=== PATIENT | female | born 1995 | race Two or more races ===

== ENCOUNTER 2017-12-18 11:04 | Emergency (ER) | payer SELFPAY, MEDICAID ==
[2017-12-18 11:18] LABS: URINE HCG POC HCG POSITIVE (Negative)
[2017-12-18 11:38] LABS: BILIRUBIN,URINE NEGATIVE (NEG); CLARITY,URINE CLOUDY; COLOR,URINE YELLOW; GLUCOSE,URINE NEGATIVE (NEG); NITRITE,URINE NEGATIVE (NEG); PH,URINE 7.5; PROTEIN,URINE NEGATIVE (NEG-TRACE)
[2017-12-18 11:51] LABS: AMORPHOUS SEDIMENT,UR PRESENT /HPF; BACTERIA,URINE FEW /HPF (0-FEW); RBC,URINE 0 /HPF (0-2); SQUAMOUS EPITHELIAL CELL,UR MOD /LPF; WBC,URINE OCC /HPF (0-4)
[2017-12-18 11:58] LABS: ADD MAN DIFF? NO
[2017-12-18 12:03] LABS: BASO % 0 % (0-3); EOS # 0.1 x10^3/uL (0.0-0.7); EOS % 2 % (0-3); HEMOGLOBIN 13.9 g/dL (12.0-15.5); LYMPH # 3.3 x10^3/uL (1.0-4.8); LYMPH % 38 % (24-48); MEAN CORPUSCULAR HEMOGLOBIN 30 pg (25-35); MEAN CORPUSCULAR HGB CONC 34 g/dL (31-37); MEAN CORPUSCULAR VOLUME 87 fL (79-100); MONO # 0.4 x10^3/uL (0.0-1.1); MONO % 5 % (0-9); NEUT # 4.9 x10^3uL (1.8-7.7); NEUT % 56 % (31-73); PLATELET COUNT 291 x10^3/uL (140-400); RED BLOOD COUNT 4.69 x10^6/uL (3.50-5.40); WHITE BLOOD COUNT 8.7 x10^3/uL (4.0-11.0)
[2017-12-18 12:10] LABS: ANION GAP 9 (6-14); BLOOD UREA NITROGEN 7 mg/dL (7-20); CARBON DIOXIDE 27 mmol/L (21-32); CHLORIDE 102 mmol/L (98-107); CREATININE 0.6 mg/dL (0.6-1.0); GFR 122.8; GLUCOSE 91 mg/dL (70-99); POTASSIUM 3.9 mmol/L (3.5-5.1); SODIUM 138 mmol/L (136-145)
[2017-12-18 12:13] LABS: INR 1.1 (0.8-1.1); PARTIAL THROMBOPLASTIN TIME 37 SEC (24-38); PROTHROMBIN TIME PATIENT 13.8 SEC (11.7-14.0)
[2017-12-18 12:15] LABS: ALBUMIN 3.8 g/dL (3.4-5.0); ALK PHOS 67 U/L (46-116); ALT (SGPT) 22 U/L (14-59); AST (SGOT) 17 U/L (15-37); DIRECT BILIRUBIN 0.1 mg/dL (0.0-0.2); TOTAL BILIRUBIN 0.8 mg/dL (0.2-1.0); TOTAL PROTEIN 7.7 g/dL (6.4-8.2)
[2017-12-18] MEDS: FLUCONAZOLE 100 MG TABLET. PO (15:09)
[2017-12-19 14:32] LABS: CHLAMYDIA PROBE Negative (Negative); GC PROBE Negative (Negative)
== END 2017-12-18 15:18 | disposition home or self-care (01) ==
LOC: ER 11:04
DX: O20.0 Threatened abortion (principal); Z3A.14 14 weeks gestation of pregnancy
CPT/HCPCS: 36415; 76801; 76817; 80048; 80076; 81001; 81025; 84702; 85025; 85610; 85730; 87086; 87491; 87591; 88305; 99285-25; Q0111

== ENCOUNTER → 2020-09-17 | Outpatient (CLI) | payer SELFPAY ==
[2017-12-18 15:16] VITALS: BP 114/67
[~2020-09-17] MED LIST: DOCU-109 PO; FERR325T14 PO; IBUP-1060 PO; NITR100C62 PO; OXYC1TAB15 PO
== END ==
LOC: LAB 14:35
PROVIDERS: ATTEND Obstetrics & Gynecology
DX: U07.1 COVID-19 (principal); Z01.812 Encounter for preprocedural laboratory examination
CPT/HCPCS: U0003

== ENCOUNTER 2020-09-21 06:12 | Inpatient (IN) | payer MEDICAID, OTHER ==
[2020-09-21] VITALS (7 sets, daily range): BP systolic 96–115; BP diastolic 53–79
[~2020-09-21] VITALS: Ht 167.6 cm; Wt 105.7 kg
[~2020-09-21 06:12] MED LIST changes: -DOCU-109 PO; -FERR325T14 PO; -IBUP-1060 PO; -OXYC1TAB15 PO
[2020-09-21] MEDS: IV NORMAL SALINE 1000ML BAG 1,000 ML IV SCH ×3 (06:45→22:45)
[2020-09-21] MEDS ORDERED: CITRIC ACID/SODIUM CITRATE 30 ML SOLUTION. PO ONE (06:45)
[2020-09-21] MEDS: IV RINGERS,LACTATED 1000ML 1,000 ML IV SCH ×4 (06:58→18:29)
[2020-09-21 07:15] LABS: HEMATOCRIT 31.7 % (36.0-47.0); RED BLOOD COUNT 3.57 x10^6/uL (3.50-5.40); RED CELL DISTRIBUTION WIDTH 13.6 % (11.5-14.5); WHITE BLOOD COUNT 11.6 x10^3/uL (4.0-11.0)
[2020-09-21 07:28] LABS: BACTERIA,URINE MODERATE /HPF (0-FEW); BILIRUBIN,URINE SMALL (NEG); CLARITY,URINE CLOUDY; COLOR,URINE AMBER; NITRITE,URINE NEGATIVE (NEG); PH,URINE 6.5 (<5.0-8.0); PROTEIN,URINE 30 mg/dL (NEG-TRACE)
[2020-09-21 07:29] LABS: RBC,URINE OCC /HPF (0-2)
[2020-09-21] MEDS ORDERED: ONDANSETRON PF 4 MG/2 ML VIAL. ONE (07:33)
[2020-09-21] MEDS ORDERED: PHENYLEPHRINE in 0.9% NACL PF 1 MG/10 ML SYRINGE. IV ONE ×2 (07:34→08:56)
[2020-09-21] MEDS ORDERED: OXYTOCIN 10 UNIT/ML VIAL. ONE ×3 (07:34)
[2020-09-21] MEDS ORDERED: fentaNYL PF VIAL 100 MCG/2 ML VIAL ONE (07:36)
[2020-09-21] MEDS ORDERED: MORPHINE PF 10 MG/10 ML AMPUL. ONE (07:36)
--- NOTE | 2020-09-21 07:38 | PDOC1 ---
SIDEROGRAPHER H&P Date of Admission: Date of Admission: Sep 21, 2020 at 06:12 History of Present Illness: EDC: 09/26/20 LMP: 09/27/19 25y @ 39.2 by 7wk u/s presents for scheduled C/S. The pt has had 3 C/S, the first in [place], followed by [place] with the final one at [facility]. PMH: Denies PSH: C/S x 3 Meds: PNV All: NKDA OBHx: 37wk C/S x 3 SH: no tob, no EtOH FH: noncontributory Medications: Meds: Current Medications Medications (Trade) Dose Ordered Sig/Nette Route PRN Reason Start Time Stop Time Status Last Admin Dose Admin Ringer's Solution 1,000 ml @ 125 mls/hr Q8H IV 09/21/20 06:45 09/21/20 06:58 Allergies: Coded Allergies: No Known Drug Allergies (Unverified , 12/25/14) Physical Exam: PE: GENERAL: No apparent distress. Alert and oriented. HEENT: Head normocephalic, atraumatic. NECK: Supple LUNGS: Clear to auscultation. HEART: RRR, S1, S2 present, pulses intact ABDOMEN: Soft, positive bowel sounds. EXTREMITIES: No cyanosis or edema. NEUROLOGIC: Normal speech, normal tone PSYCHIATRIC: Normal affect, normal mood. SKIN: No ulceration. FHT: 130s +acels/no decels/mLTV Sentinel: 10-15 min Labs: Laboratory Tests Test 09/21/20 06:40 09/21/20 06:45 White Blood Count 11.6 x10^3/uL (4.0-11.0) H Red Blood Count 3.57 x10^6/uL (3.50-5.40) Hemoglobin 11.0 g/dL (12.0-15.5) L Hematocrit 31.7 % (36.0-47.0) L Mean Corpuscular Volume 89 fL (79-100) Mean Corpuscular Hemoglobin 31 pg (25-35) Mean Corpuscular Hemoglobin Concent 35 g/dL (31-37) Red Cell Distribution Width 13.6 % (11.5-14.5) Platelet Count 217 x10^3/uL (140-400) Urine Collection Type Unknown Urine Color Shila Urine Clarity Cloudy Urine pH 6.5 (<5.0-8.0) Urine Specific [place] >=1.030 (1.000-1.030) Urine Protein 30 mg/dL (NEG-TRACE) Urine Glucose (UA) Negative mg/dL (NEG) Urine Ketones (Stick) Trace mg/dL (NEG) Urine Blood Negative (NEG) Urine Nitrite Negative (NEG) Urine Bilirubin Small (NEG) Urine Urobilinogen Dipstick 1.0 mg/dL (0.2 mg/dL) Urine Leukocyte Esterase Large (NEG) Urine RBC Occ /HPF (0-2) Urine WBC 11-20 /HPF (0-4) Urine Squamous Epithelial Cells Many /LPF Urine Bacteria Moderate /HPF (0-FEW) Urine Mucus Marked /LPF Laboratory Tests 09/21/20 06:40 Laboratory Tests 09/21/20 06:40 Assessment & Plan: A/P 25y @ 39.2 by 7wk u/s 1.) Prev C/S x 3 scheduled for RLTCS/BTL 2.) DPS consent signed 08/12/20 3.) Covid screen positive asx 4.) Anemia Hgb 11.5 5.) TDAP 07/01/20 6.) Flu given 07/01/20 7.) Fetus cat I FHT 8.) GBS neg PILI TRAORE MD Sep 21, 2020 07:38
--- NOTE | 2020-09-21 10:12 | PDOC4 ---
OPERATIVE NOTE: PreOp Dx: 1.) IUP @ 39.2 by 7wk u/s, 2.) Prev C/S x 3, 3.) DPS, 4.) Covid screen positive asx, 5.) Anemia, 6.) GBS neg PostOp Dx: same Procedure: RLTCS/BTL Surgeon: Mimi Traore Anesthesia: Spinal EBL: 700 cc Fluids: 1700 cc UOP: 100 cc Complications: None Findings: viable male infant delivered at 0832. Wt 8 lb 5 oz. APGARS 8/9. Nml appearing uterus, tubes and ovaries Path: Cord blood, bilateral tubal segments PILI TRAORE MD Sep 21, 2020 10:12
[2020-09-21] MEDS ORDERED: OXYTOCIN 30 UNIT/500 ML PREMIX 500 ML IV PRN (10:15)
[2020-09-21] MEDS ORDERED: TDaP (Adacel) per PROTOCOL. MC PRN (10:15)
[2020-09-21] MEDS ORDERED: 0.9 % SODIUM CHLORIDE 10 ML DISP.SYRIN. IV PRN (10:15)
[2020-09-21] MEDS ORDERED: MMR per PROTOCOL. MC PRN (10:15)
[2020-09-21] MEDS ORDERED: BENZOCAINE 20% TOPICAL AEROSOL SPRAY 57GM CAN. TP PRN (10:15)
[2020-09-21] MEDS ORDERED: diphenhydrAMINE ORAL ELIXIR 12.5 MG/5 ML ML PO PRN (10:15)
[2020-09-21] MEDS ORDERED: ACETAMINOPHEN 325 MG TABLET. PO PRN (10:15)
--- NOTE | 2020-09-21 10:39 | OP ---
DATE OF SURGERY: 09/21/2020 PREOPERATIVE DIAGNOSES: 1. Intrauterine at 39 weeks and 2 days by 7-week ultrasound. 2. Previous section x 3. 3. Desires permanent sterilization. 4. COVID screen positive. 5. Anemia. 6. Group B Streptococcus negative. POSTOPERATIVE DIAGNOSES: 1. Intrauterine at 39 weeks and 2 days by 7-week ultrasound. 2. Previous section x 3. 3. Desires permanent sterilization. 4. COVID screen positive. 5. Anemia. 6. Group B Streptococcus negative. PROCEDURE: Repeat lower transverse with bilateral tubal ligation. SURGEON: Sumanth Traore MD. ANESTHESIA: Spinal. ESTIMATED BLOOD LOSS: 700 mL. FLUIDS: 1700 mL. URINE OUTPUT: 100 mL. COMPLICATIONS: None. FINDINGS: Viable female infant delivered at 08:32 weighing 8 pounds 5 ounces with Apgars of 8 and 9. Normal appearing uterus, tubes and ovaries. PATHOLOGY: Cord blood and bilateral tubal segments. DESCRIPTION OF PROCEDURE: The patient was taken to the operating room where spinal anesthesia was placed without difficulty. The patient was prepped and draped in a normal sterile fashion. A Pfannenstiel skin incision was made through her previous incision and carried down to underlying layer of fascia. The fascia was then nicked in the midline. The fascial incision was then extended laterally with Souza scissors. Superior aspect of fascial incision was then grasped with Jonathan clamps, elevated and the underlying rectus muscle was dissected off with scalpel. Attention was then turned to the inferior aspect of the fascial incision, which was grasped with Jonathan clamps, elevated and underlying rectus muscle was dissected off with Souza scissors. At that point, the midline of the rectus muscle was identified and . The peritoneum was then grasped with 2 hemostats, tented up and Metzenbaum scissors were used to enter the peritoneal cavity sharply. Digital examination of the peritoneal cavity revealed minimal adhesions. At that point, the peritoneal incision was then extended superiorly and inferiorly with good visualization of the bladder with traction and countertraction. At that point, Yevgeniy ring was then placed into the abdomen to better visualize the lower uterine segment. Metzenbaum scissors were used to create a bladder flap. It appeared at that point that the bladder was somewhat inflated. It was also noted at that point that since the Vazquez had been placed, no urine had returned. It was felt that the catheter may not be in the bladder, but since the bladder was not in the way of the procedure, the procedure was continued. At that point, the lower uterine segment was incised in transverse fashion with the scalpel. The head was unable to be flexed adequately for delivery of the . With abdominal pressure, the forehead seemed to be trying to exit the hysterotomy before the crown and since this being the case, a vacuum was placed to better flex the head. Once the vacuum was placed, the 's head was able to be delivered. The baby was noted to be in OP position at that point. The rest of the was delivered atraumatically. The cord was double clamped and cut. Infant was handed over to the awaiting pharmacy informatics manager. Placenta was then removed manually. The uterus was cleared of all clots and debris. Uterine incision was then repaired with #1 chromic in a running locked fashion. A second layer of the same suture was used to imbricate. Good hemostasis was noted. At that point, the uterus was exteriorized to allow for the tubal to be performed. The left tube was then identified and followed out to the fimbria. The tube was then grasped with a Allison. An opening was created in the avascular portion of the mesosalpinx. Two free ties of 0 gut were used to ligate the tube. This 2 cm segment of the tube was then excised and sent to pathology. The edges were made hemostatic with the Bovie. Attention was then turned to the right tube, which was followed out to the fimbria. The Laurel was then placed on the tube with the Bovie. An opening was created in avascular space of the mesosalpinx below the tube. At that point, 2 free ties of plain gut were used to ligate the tube. This 2 cm segment of the tube was then excised and sent to pathology. The tube was again made hemostatic with the Bovie. At that point, the uterus was returned to the abdomen. The gutters were copiously irrigated and cleared of all clots and debris. Reexamination of the tubal sites revealed good hemostasis. The Yevgeniy retractor was then removed. The peritoneum was then closed with 2-0 Vicryl in a running fashion. The muscle was reapproximated with 2-0 Vicryl in a running fashion. The fascia was then closed with 0 Vicryl in a running fashion. The skin was closed with 3-0 Monocryl in subcuticular manner. The patient tolerated the procedure well. The Vazquez was found to be in her vagina, so a new Vazquez was place after the case. Clear urine returned. Sponges, laps, and needles were correct x 3. Two grams of Ancef were given prior to the procedure. The patient tolerated the procedure well and was taken to recovery room in stable condition. SUMNATH TRAORE MD DR: GALLITO/naty JOB#: [id number] / [id number] TAMI
[2020-09-21] MEDS: KETOROLAC 30 MG/ML VIAL. IVP PRN ×2 (10:43→17:20)
[2020-09-21] MEDS: FERROUS SULFATE 325 MG TABLET. PO SCH (17:00)
[2020-09-22 01:00] VITALS: BP 107/59
[2020-09-22 06:15] VITALS: BP 79/53
[2020-09-22] MEDS: IV NORMAL SALINE 1000ML BAG 1,000 ML IV SCH ×2 (06:45→14:45)
[2020-09-22] MEDS: oxyCODONE/APAP 5/325 1 TAB TABLET PO PRN ×4 (06:53→20:44)
[2020-09-22 06:54] VITALS: BP 103/56
[2020-09-22 06:58] LABS: HEMATOCRIT 27.3 % (36.0-47.0); HEMOGLOBIN 9.6 g/dL (12.0-15.5); RED BLOOD COUNT 3.07 x10^6/uL (3.50-5.40); RED CELL DISTRIBUTION WIDTH 13.5 % (11.5-14.5); WHITE BLOOD COUNT 10.7 x10^3/uL (4.0-11.0)
[2020-09-22] MEDS ORDERED: MULTIVITAMIN with MINERAL TABLET. PO SCH (09:00)
[2020-09-22 10:30] VITALS: BP 102/56
[2020-09-22] MEDS: FERROUS SULFATE 325 MG TABLET. PO SCH ×2 (11:07→17:20)
[2020-09-22] MEDS: PRENATAL MULTIVITAMIN TABLET. PO SCH (11:08)
[2020-09-22] MEDS: IBUPROFEN 400 MG TABLET. PO PRN ×2 (11:08→20:45)
--- NOTE | 2020-09-22 14:01 | PDOC ---
FUNERAL PROFESSIONAL PROGRESS NOTE Date of Service: DATE: 09/22/20 TIME: 14:01 Subjective: Pt with good pain control. Catina PO. Voiding. Minimal lochia. Objective: Vital Signs: Vital Signs Date Time Temp Pulse Resp B/P (MAP) Pulse Ox O2 Delivery O2 Flow Rate FiO2 09/21/20 12:00 Room Air 09/21/20 12:00 98.2 91 18 97/60 (72) 98 98.2 Vital Signs Date Time Temp Pulse Resp B/P (MAP) Pulse Ox O2 Delivery O2 Flow Rate FiO2 09/22/20 12:08 16 100 Room Air 09/22/20 10:30 98.0 90 102/56 (71) 98.0 Labs: Laboratory Tests Test 09/22/20 06:30 White Blood Count 10.7 x10^3/uL (4.0-11.0) Red Blood Count 3.07 x10^6/uL (3.50-5.40) L Hemoglobin 9.6 g/dL (12.0-15.5) L Hematocrit 27.3 % (36.0-47.0) L Mean Corpuscular Volume 89 fL (79-100) Mean Corpuscular Hemoglobin 31 pg (25-35) Mean Corpuscular Hemoglobin Concent 35 g/dL (31-37) Red Cell Distribution Width 13.5 % (11.5-14.5) Platelet Count 175 x10^3/uL (140-400) Laboratory Tests 09/22/20 06:30 Laboratory Tests 09/22/20 06:30 Physical Exam: GENERAL: No apparent distress. Alert and oriented. HEENT: Head normocephalic, atraumatic. NECK: Supple LUNGS: Clear to auscultation. HEART: RRR, S1, S2 present, pulses intact ABDOMEN: Soft, positive bowel sounds. EXTREMITIES: No cyanosis or edema. NEUROLOGIC: Normal speech, normal tone PSYCHIATRIC: Normal affect, normal mood. SKIN: No ulceration. FFNT below umb Inc: C/D/I No C/C/E Assessment & Plan: A/P 25y POD #1 s/p RLTCS/BTL 1.) PO doing well 2.) Covid screen positive asx 3.) Anemia Hgb 11.5 -> 9.6 4.) TDAP 07/01/20 5.) Flu given 10/22/20 6.) Cont PP care PILI TRAORE MD Sep 22, 2020 14:01
[2020-09-22] MEDS: IV RINGERS,LACTATED 1000ML 1,000 ML IV SCH (14:45)
[2020-09-22 16:56] VITALS: BP 105/66
[2020-09-22 20:30] VITALS: BP 106/63
[2020-09-22] MEDS: DOCUSATE SODIUM 100 MG CAPSULE. PO PRN (20:46)
[2020-09-23 00:10] VITALS: BP 101/73
[2020-09-23] MEDS: oxyCODONE/APAP 5/325 1 TAB TABLET PO PRN ×3 (02:12→11:22)
[2020-09-23 05:30] VITALS: BP 107/59
[2020-09-23] MEDS: IBUPROFEN 400 MG TABLET. PO PRN ×2 (06:23→14:44)
[2020-09-23] MEDS: DOCUSATE SODIUM 100 MG CAPSULE. PO PRN (08:11)
[2020-09-23] MEDS: FERROUS SULFATE 325 MG TABLET. PO SCH (08:11)
[2020-09-23 08:15] VITALS: BP 98/60
[2020-09-23] MEDS ORDERED: IBUP-1060 PO (11:16)
[2020-09-23] MEDS ORDERED: OXYC1TAB15 PO (11:16)
[2020-09-23] MEDS ORDERED: DOCU-109 PO (11:16)
[2020-09-23] MEDS ORDERED: FERR325T14 PO (11:16)
--- NOTE | 2020-09-23 11:48 | PDOC ---
MAINTENANCE AND UTILITIES SUPERVISOR PROGRESS NOTE Date of Service: DATE: 09/23/20 TIME: 11:47 Subjective: Pt with good pain control. Catina PO. Voiding. Minimal lochia. Objective: Vital Signs: Vital Signs Date Time Temp Pulse Resp B/P (MAP) Pulse Ox O2 Delivery O2 Flow Rate FiO2 09/22/20 08:00 Room Air 09/22/20 10:30 98.0 90 18 102/56 (71) 100 98.0 Vital Signs Date Time Temp Pulse Resp B/P (MAP) Pulse Ox O2 Delivery O2 Flow Rate FiO2 09/23/20 11:22 18 Room Air 09/23/20 08:15 98.2 86 98/60 (73) 97 98.2 Physical Exam: GENERAL: No apparent distress. Alert and oriented. HEENT: Head normocephalic, atraumatic. NECK: Supple LUNGS: Clear to auscultation. HEART: RRR, S1, S2 present, pulses intact ABDOMEN: Soft, positive bowel sounds. EXTREMITIES: No cyanosis or edema. NEUROLOGIC: Normal speech, normal tone PSYCHIATRIC: Normal affect, normal mood. SKIN: No ulceration. FFNT below umb Inc: C/D/I No C/C/E Assessment & Plan: A/P 25y POD #2 s/p RLTCS/BTL 1.) PO doing well 2.) Covid screen positive asx 3.) Anemia Hgb 11.5 -> 9.6 4.) TDAP 07/01/20 5.) Flu given 07/01/20 6.) D/c home PILI TRAORE MD Sep 23, 2020 11:48
[2020-09-23 11:55] VITALS: BP 98/69
--- NOTE | 2020-09-23 12:06 | DS ---
DATE OF DISCHARGE: 09/23/2020 ADMISSION DIAGNOSES: 1. Intrauterine at 39 weeks and 2 days by 7-week ultrasound. 2. Previous section x 3. 3. Desires permanent sterilization. 4. COVID screen positive with the patient being asymptomatic. 5. Anemia. 6. GBS negative. DISCHARGE DIAGNOSES: 1. Intrauterine at 39 weeks and 2 days by 7-week ultrasound. 2. Previous section x 3. 3. Desires permanent sterilization. 4. COVID screen positive with the patient being asymptomatic. 5. Anemia. 6. GBS negative. PROCEDURE: Repeat low transverse . BRIEF HOSPITAL COURSE: The patient is a 25-year-old 6, para 3-0-2-3, at 39 weeks and 2 days by 7-week ultrasound, who presented to Labor and Delivery for a scheduled . The patient had went to preoperative testing on 09/17/2020 and was found to be COVID positive. The patient had been asymptomatic at that point and prior. The patient was informed of the results and was treated accordingly. The patient came in for scheduled and underwent said procedure with tubal ligation. See operative note for full detail. By day #2, the patient was meeting all discharge criteria and was subsequently discharged home. Of note, the patient's hemoglobin on admission was 11.5 and was found to be 9.6 on discharge. DISCHARGE INSTRUCTIONS: The patient was told not to lift anything greater than 20 pounds, have pelvic rest for [address] or narcotics. CALL IF: The patient was to call if she had fevers, chills, nausea, vomiting, abdominal pain or any additional questions or concerns. FOLLOWUP APPOINTMENT: The patient is to follow up in 2 weeks on 10/07/2020 at 01:20 for an incision check. DISCHARGE MEDICATIONS: The patient was given a prescription for Percocet 5, 15 pills; Motrin 800 mg, 30 pills; Colace 100 mg, 30 pills and ferrous sulfate 325 mg, 30 pills. PILI TRAORE MD DR: GALLITO/naty JOB#: [id number] / [id number]
[2020-09-23] MEDS: PRENATAL MULTIVITAMIN TABLET. PO SCH (14:45)
[2020-09-23 15:00] VITALS: BP 103/60
--- NOTE | 2020-09-23 16:16 | NUR ---
dismissed per w/c to in car at 1530. Baby in carseat and states pain is better.Home care instructions given along with rx
--- NOTE | 2020-09-27 15:31 | PATHOLOGY ---
[facility] Accession Number: [id number] . 01 Material submitted: . fallopian tube - LEFT AND RIGHT FALLOPIAN TUBE. Modifiers: bilateral . 02 Diagnosis: Bilateral tubal ligation: - Segments (2) of fallopian tube confirmed. . ([facility]:mml; 09/27/2020) [facility] 09/27/2020 1437 Local . 02 Electronically signed: . Robin Taylor MD, Pathologist NPI- [id number] . 01 Gross description: . The specimen is received in formalin, labeled "Shana Muñiz, R fallopian tube L fallopian tube" and consists of 2 nonfimbriated fallopian tube segments measuring 1.1 cm in length and 0.5 cm in diameter and 2.0 cm in length and 0.6 cm in diameter. Each reveals a well-defined lumen and are submitted entirely as follows: . A1: Wendell tube A2: Longer tube (SDY; 09/24/2020) [facility]/SYU 09/24/2020 1606 Local . 02 Pathologist provided ICD-10: Z33.1 . 02 CPT . 957071 Specimen Comment: A courtesy copy of this report has been sent to [phone] Specimen Comment: Report sent to Performed at: 01 [facility] [address], [place], [place] [id number] MD Miguel Khoury MD Phone: [phone] Performed at: 02 [facility] [address] [place], [place] [id number] MD Robin Taylor MD Phone: [phone]
== END 2020-09-23 15:30 | disposition home or self-care (01) | DRG 783 ==
LOC: 3 SO LND 06:12
PROVIDERS: ADMIT Obstetrics & Gynecology; ATTEND Obstetrics & Gynecology
PROC: 10D00Z1 Extraction of Products of Conception, Low, Open Approach (ICD-10-PCS; principal; 2020-09-21)
PROC: 0UB70ZZ Excision of Bilateral Fallopian Tubes, Open Approach (ICD-10-PCS; 2020-09-21)
DX: O98.52 Other viral diseases complicating childbirth (principal); U07.1 COVID-19; O34.211 Maternal care for low transverse scar from previous cesarean delivery; O99.02 Anemia complicating childbirth; D64.9 Anemia, unspecified; Z30.2 Encounter for sterilization; Z37.0 Single live birth; Z3A.39 39 weeks gestation of pregnancy
CPT/HCPCS: 36415; 81001; 85027; 86592; 86850; 86900; 86901; 87086; 88302; J0690; J1885; J2274; J2370; J2405; J2590; J3010; J7120; G0378